=== PATIENT | female | born 1955 | race Caucasian/White ===

== ENCOUNTER → 2017-09-14 | Outpatient (CLI) | payer OTHER | LOC: CIMAGING 10:49 | PROVIDERS: ATTEND Family Medicine | DX: Z12.31 Encounter for screening mammogram for malignant neoplasm of breast (principal) | CPT/HCPCS: G0202 ==

== ENCOUNTER → 2018-10-10 | Outpatient (CLI) | payer OTHER | LOC: FIMAGING 10:15 | PROVIDERS: ATTEND Family Medicine Sports Medicine | DX: M19.012 Primary osteoarthritis, left shoulder (principal); M47.896 Other spondylosis, lumbar region; M53.86 Other specified dorsopathies, lumbar region ==

== ENCOUNTER → 2018-10-18 | Outpatient (CLI) | payer OTHER | LOC: CIMAGING 08:29 | PROVIDERS: ATTEND Family Medicine | DX: Z12.31 Encounter for screening mammogram for malignant neoplasm of breast (principal) ==